=== PATIENT | male | born 1975 | race Caucasian/White ===

== ENCOUNTER 2016-11-19 16:36 | Emergency (ER) | payer OTHER ==
[~2016-11-19] VITALS: Ht 167.6 cm; Wt 80.0 kg
[2016-11-19 16:40] VITALS: BP_SYST 139; BP_DIAS 91; BP_DIAS 97; PULSE 62; RESP 16; TEMP 98.4; O2SAT 98
[2016-11-19] MEDS ORDERED: LAMO100 PO (16:50)
--- NOTE | 2016-11-19 17:42 | PD ---
HPI Chief Complaint: Psychiatric Symptoms Time Seen by Provider: 17:37 Travel History International Travel<30 days: No Contact w/Intl Traveler<30days: No Traveled to known affect area: No History of Present Illness HPI 40-year-old male that presents to the ED for evaluation of psych evaluation. Patient was seen at a [facility] and was sent here for evaluation of the Egan act. Patient was Egan acted secondary to suicidal ideation. Patient has a history of substance abuse and apparently has been using PCP. He denies any injuries. Patient had blood work at the facility which showed no sign of acute disease other than positive for the PCP. He denies any other medical issues. Denies Suicidal or homicidal ideation at this time. He was accepted by one of our psychiatrist. [facility] Past Medical History Bipolar Disorder: Yes Anxiety: Yes Depression: Yes Diminished Hearing: No Kidney Stones: Yes Tetanus Vaccination: > 5 Years Influenza Vaccination: No Past Surgical History Genitourinary Surgery: Yes (lithotripsy) Social History Alcohol Use: Yes (occasional--3 days ago (vodka)) Tobacco Use: No Substance Use: Yes (occasional alcohol, last used --vodka) Allergies-Medications (Allergen,Severity, Reaction): Coded Allergies: Ultram (Verified Allergy, Intermediate, Nausea/Vomiting, 11/19/16) Reported Meds & Prescriptions Reported Meds & Active Scripts Active Reported Lamictal (Lamotrigine) 100 Mg Tab 100 Mg PO BID Review of Systems Except as stated in HPI: all other systems reviewed are Neg Physical Exam Narrative GENERAL: SKIN: Warm and dry. HEAD: Atraumatic. Normocephalic. EYES: Pupils equal and round. No scleral icterus. No injection or drainage. ENT: No nasal bleeding or discharge. Mucous membranes pink and moist. Tongue is midline. No uvula deviation. NECK: Trachea midline. No JVD. CARDIOVASCULAR: Regular rate and rhythm. No murmurs, S3, S4. RESPIRATORY: No accessory muscle use. Clear to auscultation. Breath sounds equal bilaterally. GASTROINTESTINAL: Abdomen soft, non-tender, nondistended. Hepatic and splenic margins not palpable. MUSCULOSKELETAL: Extremities without clubbing, cyanosis, or edema. No obvious deformities. Full range of motion of the upper and lower extremities bilaterally. 2+ pulses bilaterally. NEUROLOGICAL: Awake and alert. No obvious cranial nerve deficits. Motor grossly within normal limits. Five out of 5 muscle strength in the arms and legs. Normal speech. PSYCHIATRIC: Appropriate mood and affect; insight and judgment normal. Data Data Last Documented VS Vital Signs Date Time Temp Pulse Resp B/P Pulse Ox O2 Delivery O2 Flow Rate FiO2 11/19/16 16:40 98.4 62 16 139/97 98 Orders Psych Screen (11/19/16 17:10) MDM Medical Decision Making Medical Screen Exam Complete: Yes Emergency Medical Condition: Yes Medical Record Reviewed: Yes Differential Diagnosis Depression versus suicidal ideation versus anxiety versus adjustment disorder versus mood disorder versus bipolar disorder versus schizophrenia versus paranoid disorder versus psychosis versus substance abuse versus alcohol abuse versus alcohol induced psychosis versus homicidality addition versus cutting versus personality disorder Narrative Course 40-year-old male that presents to the ED for evaluation of psych. Patient was properly examined and was found to have signs and symptoms consistent appears to be psychiatric illness. No sign of acute medical distress. Patient did have blood work at a different facility and medically cleared and sent here for psych eval. I reviewed the blood work and it looked okay. Patient was medically cleared. Okay to be seen by psych. Mental health screening was discussed with the patient. Diagnosis Primary Impression: Bipolar 1 disorder Kendrick [address] Nov 19, 2016 17:42
[2016-11-19 18:05] VITALS: BP 138/68; PULSE 53; RESP 18
[2016-11-19] MEDS ORDERED: BUSP5TAB PO (18:37)
[2016-11-19 22:05] VITALS: BP 132/70; PULSE 60; RESP 18
[2016-11-20] MEDS ORDERED: lamoTRIgine 100 MG TAB PO ONE (02:30)
[2016-11-20 02:37] VITALS: BP 135/76; PULSE 88; RESP 18; O2SAT 98
[2016-11-20 06:54] VITALS: BP 123/64; PULSE 58; RESP 18; O2SAT 98
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
== END 2016-11-20 09:58 | disposition home or self-care (01) ==
LOC: NEPJ 16:36
DX: F31.9 Bipolar disorder, unspecified (principal)
CPT/HCPCS: 99284